=== PATIENT | male | born 1980 | race Caucasian/White ===

== ENCOUNTER 2017-10-04 07:00 | Emergency (ER) | payer SELFPAY ==
[~2017-10-04] VITALS: Ht 182.9 cm; Wt 85.0 kg
[2017-10-04] MEDS ORDERED: ACETAMINOPHEN 500MG TABLET PO ONE (10:15)
[2017-10-04 12:21] VITALS: BP 111/69
== END 2017-10-04 12:24 | disposition home or self-care (01) ==
LOC: ER 08:57
DX: M25.561 Pain in right knee (principal)
CPT/HCPCS: 73562; 99284